=== PATIENT | female | born 1950 | race Caucasian/White ===

== ENCOUNTER → 2017-06-01 | Outpatient (CLI) | payer BC ==
--- NOTE | 2017-06-02 11:57 | MM ---
Reason for exam: screening (asymptomatic). Last mammogram was performed 1 year and 1 month ago. History: Patient is postmenopausal. Family history of breast cancer in maternal grandmother at age 80 and breast cancer in maternal aunt at age 45. Took hormonal contraceptives for 8 years beginning at age 20. Took estrogen for 7 years beginning at age 54. Took progesterone for 7 years beginning at age 54. Physical Findings: A clinical breast exam by your physician is recommended on an annual basis and results should be correlated with mammographic findings. MG 3D Screening Mammo W/Cad Bilateral CC and MLO view(s) were taken. Prior study comparison: April 30, 2016, bilateral MG screening mammo w CAD. February 28, 2015, bilateral MG screening mammo w CAD. There are scattered fibroglandular densities. Finding: There are typically benign vascular calcifications in the right breast. There is no discrete abnormality. ASSESSMENT: Benign, BI-RAD 2 RECOMMENDATION: Routine screening mammogram of both breasts in 1 year.
== END | disposition home or self-care (01) ==
LOC: RADMAMWWP 09:47
PROVIDERS: ATTEND Obstetrics & Gynecology
DX: Z12.31 Encounter for screening mammogram for malignant neoplasm of breast (principal); Z80.3 Family history of malignant neoplasm of breast
CPT/HCPCS: 77063; G0202

== ENCOUNTER → 2018-07-05 | Outpatient (CLI) | payer MEDICARE ==
--- NOTE | 2018-07-06 09:59 | MM ---
Reason for exam: screening (asymptomatic). Last mammogram was performed 1 year and 1 month ago. History: Patient is postmenopausal. Family history of breast cancer in maternal grandmother at age 80 and breast cancer in maternal aunt at age 45. Took hormonal contraceptives for 8 years beginning at age 20. Took estrogen for 7 years beginning at age 54. Took progesterone for 7 years beginning at age 54. Physical Findings: A clinical breast exam by your physician is recommended on an annual basis and results should be correlated with mammographic findings. MG 3D Screening Mammo W/Cad Bilateral CC and MLO view(s) were taken. Prior study comparison: June 01, 2017, bilateral MG 3d screening mammo w/cad. April 30, 2016, bilateral MG screening mammo w CAD. There are scattered fibroglandular densities. Benign appearing bilateral calcifications. No suspicious abnormality. No significant changes when compared with prior studies. ASSESSMENT: Benign, BI-RAD 2 RECOMMENDATION: Routine screening mammogram of both breasts in 1 year.
== END | disposition home or self-care (01) ==
LOC: RADMAMWWP 14:23
PROVIDERS: ATTEND Internal Medicine
DX: Z12.31 Encounter for screening mammogram for malignant neoplasm of breast (principal)
CPT/HCPCS: 77063; 77067

== ENCOUNTER → 2019-09-13 | Outpatient (CLI) | payer MEDICARE ==
--- NOTE | 2019-09-15 14:37 | MM ---
Reason for exam: screening (asymptomatic). Last mammogram was performed 1 year and 2 months ago. History: Patient is postmenopausal. Family history of breast cancer in maternal grandmother at age 80 and breast cancer in maternal aunt at age 45. Took hormonal contraceptives for 8 years beginning at age 20. Took estrogen for 7 years beginning at age 54. Took progesterone for 7 years beginning at age 54. Physical Findings: A clinical breast exam by your physician is recommended on an annual basis and results should be correlated with mammographic findings. MG 3D Screening Mammo W/Cad Bilateral CC and MLO view(s) were taken. Prior study comparison: July 05, 2018, bilateral MG 3d screening mammo w/cad. June 01, 2017, bilateral MG 3d screening mammo w/cad. The breast tissue is heterogeneously dense. This may lower the sensitivity of mammography. No significant changes when compared with prior studies. ASSESSMENT: Benign, BI-RAD 2 RECOMMENDATION: Routine screening mammogram of both breasts in 1 year.
== END | disposition home or self-care (01) ==
LOC: RADMAMWWP 13:09
PROVIDERS: ATTEND Internal Medicine
DX: Z12.31 Encounter for screening mammogram for malignant neoplasm of breast (principal)
CPT/HCPCS: 77063; 77067

== ENCOUNTER → 2020-12-07 | Outpatient (CLI) | payer MEDICARE ==
--- NOTE | 2020-12-10 11:12 | MM ---
Reason for exam: screening (asymptomatic). Last mammogram was performed 1 year and 3 months ago. History: Patient is postmenopausal. Family history of breast cancer in maternal grandmother at age 80 and breast cancer in maternal aunt at age 45. Took hormonal contraceptives for 8 years beginning at age 20. Took estrogen for 7 years beginning at age 54. Took progesterone for 7 years beginning at age 54. Physical Findings: A clinical breast exam by your physician is recommended on an annual basis and results should be correlated with mammographic findings. MG 3D Screening Mammo W/Cad Bilateral CC and MLO view(s) were taken. Prior study comparison: September 13, 2019, bilateral MG 3d screening mammo w/cad. July 05, 2018, bilateral MG 3d screening mammo w/cad. There are scattered fibroglandular densities. There are benign appearing vascular calcifications bilaterally. There is no discrete abnormality. ASSESSMENT: Benign, BI-RAD 2 RECOMMENDATION: Routine screening mammogram of both breasts in 1 year.
== END | disposition home or self-care (01) ==
LOC: RADMAMWWP 10:43
PROVIDERS: ATTEND Internal Medicine
DX: Z12.31 Encounter for screening mammogram for malignant neoplasm of breast (principal); Z78.0 Asymptomatic menopausal state; Z80.3 Family history of malignant neoplasm of breast
CPT/HCPCS: 77063; 77067

== ENCOUNTER → 2021-12-18 | Outpatient (CLI) | payer MEDICARE ==
--- NOTE | 2021-12-19 08:30 | MM ---
Reason for Exam: Screening (asymptomatic). Last mammogram was performed 1 year(s) and 1 month(s) ago. Patient History: Menarche at age 13. First Full-Term at age 24. Postmenopausal. Estrogen for 7 years from age 54 until age 61. Progesterone for 7 years from age 54 until age 61. Hormonal Contraceptives for 8 years from age 20 until age 52. Maternal grandmother had breast cancer, age 80. Maternal aunt had breast cancer, age 45. Risk Values: Sue 5 year model risk: 1.7%. NCI Lifetime model risk: 5.2%. Prior Study Comparison: 07/05/2018 Bilateral Screening Mammogram, [facility]. 09/13/2019 Bilateral Screening Mammogram, [facility]. 12/07/2020 Bilateral Screening Mammogram, [facility]. Tissue Density: The breast tissue is heterogeneously dense. This may lower the sensitivity of mammography. Findings: Analyzed By CAD. There are benign-appearing round and vascular calcifications bilaterally redemonstrated. Benign-appearing left axillary lymph nodes are again seen. There is no suspicious group of microcalcifications or new suspicious mass in either breast. Overall Assessment: Benign, BI-RAD 2 Management: Screening Mammogram of both breasts in 1 year. A clinical breast exam by your physician is recommended on an annual basis and results should be correlated with mammographic findings. Electronically signed and approved by: Ashutosh Street M.D.
== END | disposition home or self-care (01) ==
LOC: RADMAMWWP 09:26
PROVIDERS: ATTEND Internal Medicine
DX: Z12.31 Encounter for screening mammogram for malignant neoplasm of breast (principal)
CPT/HCPCS: 77063; 77067

== ENCOUNTER → 2022-05-16 | Outpatient (CLI) | payer MEDICARE ==
--- NOTE | 2022-05-19 11:53 | PE ---
EXAMINATION TYPE: PET CT fusion skull to thigh DATE OF EXAM: 05/16/2022 CLINICAL INDICATION:Female, 72 years old with history of R91.1 SOLITARY PULMONARY NODULE; TECHNIQUE: Following the intravenous administration of 10.9 mCi of F-18 FDG, whole body images are performed from the skull base to the midthigh. Images are reviewed on the computer in the coronal, a xial, and sagittal planes. Reconstructed rotating images are created on independent workstation and reviewed on the computer. A non-contrast CT is performed in conjunction with the PET scan. Glucose level 86 mg/dL COMPARISON: CT 04/09/2022 outside institution, PET/CT None, FINDINGS: Mediastinal SUV mean is 1.8. Hepatic parenchyma SUV mean is 2.5 SKULL BASE AND NECK: Left thyroid nodule with slightly increased FDG activity with max SUV 3.3. CHEST, MEDIASTINUM, AND HILAR REGION: Scattered lymph nodes with mild FDG activity including: * Right paratracheal posteriorly more superior measuring 6 mm in short axis and max SUV 3.0 * Right low paratracheal lymph node measuring 8 mm and max SUV 3.2. * Subcarinal lymph node with calcification measuring 6 mm in short axis and max SUV 2.9. * Left pulmonary hilum lymph nodes which are difficult to measure without IV contrast maximum SUV 3. 8. * Right pulmonary hilum lymph nodes which are difficult to measure without IV contrast maximum SUV 3 .9. * AP window lymph nodes which are difficult to measure given adjacent vascular structures max SUV 3. 8. Scattered pulmonary nodules throughout the lungs are again again seen. A majority of these are below threshold for PET/CT. Examples include: * Right upper lobe measuring 4 mm max SUV 0.5. * Right middle lobe measuring 5 mm Max SUV 0.8. * Right lower lobe 3 mm nodule Max SUV 0.6. * Left upper lobe nodular densities in totality measuring 8 x 7 mm Max SUV 0.8. * Left lower lobe 5 mm Max SUV 0.6. ABDOMEN AND PELVIS: No suspicious FDG activity. OSSEOUS STRUCTURES: No suspicious FDG activity. OTHER CT: Atherosclerosis of the arterial vasculature including the coronary arteries. The gallbladde r surgically absent. IMPRESSION: 1. Scattered subcentimeter pulmonary nodules with minimal FDG activity which are technically below t he threshold sensitivity for PET/CT. These findings with mild FDG activity within multiple lymph node s in the mediastinum suggest an infectious/inflammatory process. Attention on short-term follow-up im aging. Comparisons from before 04/09/2022 at outside institutions may be of benefit. 2. Mild FDG activity within the left thyroid gland correlate with thyroid ultrasound and serum marke rs.
== END | disposition home or self-care (01) ==
LOC: RADPETMAIN 13:40
PROVIDERS: ATTEND Internal Medicine Critical Care Medicine
DX: R91.8 Other nonspecific abnormal finding of lung field (principal)
CPT/HCPCS: 78815; A9552

== ENCOUNTER → 2022-12-23 | Outpatient (CLI) | payer MEDICARE ==
--- NOTE | 2022-12-24 07:08 | MM ---
Reason for Exam: Screening (asymptomatic). Last screening mammogram was performed 12 month(s) ago. Patient History: Menarche at age 13. First Full-Term at age 24. Postmenopausal. Estrogen for 7 years from age 54 until age 61. Progesterone for 7 years from age 54 until age 61. Hormonal Contraceptives for 8 years from age 20 until age 52. Maternal grandmother had breast cancer, age 80. Maternal aunt had breast cancer, age 45. Risk Values: Sue 5 year model risk: 1.7%. NCI Lifetime model risk: 5.0%. Prior Study Comparison: 09/13/2019 Bilateral Screening Mammogram, [facility]. 12/07/2020 Bilateral Screening Mammogram, [facility]. 12/18/2021 Bilateral MG 3D screening mammo w/cad, [facility]. Tissue Density: The breast tissue is heterogeneously dense. This may lower the sensitivity of mammography. Findings: Analyzed By CAD. There is no suspicious group of microcalcifications or new suspicious mass in either breast. Benign vascular calcifications within both breasts. Overall Assessment: Benign, BI-RAD 2 Management: Screening Mammogram of both breasts in 1 year. A clinical breast exam by your physician is recommended on an annual basis and results should be correlated with mammographic findings. Electronically signed and approved by: Abram Greene D.O.
== END | disposition home or self-care (01) ==
LOC: RADMAMWWP 13:10
PROVIDERS: ATTEND Internal Medicine
DX: Z12.31 Encounter for screening mammogram for malignant neoplasm of breast (principal); Z78.0 Asymptomatic menopausal state; Z80.3 Family history of malignant neoplasm of breast
CPT/HCPCS: 77063; 77067

== ENCOUNTER → 2023-12-25 | Outpatient (CLI) | payer MEDICARE ==
--- NOTE | 2023-12-28 13:12 | MM ---
Reason for Exam: Screening (asymptomatic). Last screening mammogram was performed 12 month(s) ago. Patient History: Menarche at age 13. First Full-Term at age 24. Postmenopausal. Estrogen for 7 years from age 54 until age 61. Progesterone for 7 years from age 54 until age 61. Hormonal Contraceptives for 8 years from age 20 until age 52. Maternal grandmother had breast cancer, age 80. Maternal aunt had breast cancer, age 45. Risk Values: Sue 5 year model risk: 1.7%. NCI Lifetime model risk: 4.7%. Prior Study Comparison: 12/07/2020 Bilateral Screening Mammogram, [facility]. 12/18/2021 Bilateral MG 3D screening mammo w/cad, [facility]. 12/23/2022 Bilateral MG 3D screening mammo w/cad, [facility]. Tissue Density: The breasts are heterogeneously dense, which may obscure small masses. Findings: Analyzed By CAD. There is no suspicious group of microcalcifications or new suspicious mass in either breast. Overall Assessment: Benign, BI-RAD 2 Management: Screening Mammogram of both breasts in 1 year. . Patient should continue monthly self-breast exams. A clinical breast exam by your physician is recommended on an annual basis. This exam should not preclude additional follow-up of suspicious palpable abnormalities. Note on Sue scores and lifetime risk: 1. A Sue score greater than 3% is considered moderate risk. If this is the case, consider specialist referral to assess eligibility for a risk reducing agent. 2. If overall lifetime risk for the development of breast cancer is 20% or higher, the patient may qualify for future screening with alternating mammogram and breast MRI. Electronically signed and approved by: Ralph Nieves M.D. Radiologis
== END | disposition home or self-care (01) ==
LOC: RADMAMWWP 10:05
PROVIDERS: ATTEND Internal Medicine
DX: Z12.31 Encounter for screening mammogram for malignant neoplasm of breast (principal); Z80.3 Family history of malignant neoplasm of breast; Z78.0 Asymptomatic menopausal state
CPT/HCPCS: 77063; 77067

== ENCOUNTER → 2025-01-03 | Outpatient (CLI) | payer MEDICARE ==
--- NOTE | 2025-01-03 15:49 | MM ---
Reason for Exam: Screening (asymptomatic). Last screening mammogram was performed 12 month(s) ago. Patient History: Menarche at age 13. First Full-Term at age 24. Postmenopausal. Estrogen for 7 years from age 54 until age 61. Progesterone for 7 years from age 54 until age 61. Hormonal Contraceptives for 8 years from age 20 until age 52. Maternal grandmother had breast cancer, age 80. Maternal aunt had breast cancer, age 45. Risk Values: Sue 5 year model risk: 1.7%. NCI Lifetime model risk: 4.5%. Prior Study Comparison: 07/05/2018 Bilateral Screening Mammogram, [facility]. 09/13/2019 Bilateral Screening Mammogram, [facility]. 12/07/2020 Bilateral Screening Mammogram, [facility]. 12/18/2021 Bilateral MG 3D screening mammo w/cad, [facility]. 12/23/2022 Bilateral MG 3D screening mammo w/cad, [facility]. 12/25/2023 Bilateral MG 3D screening mammo w/cad, [facility]. Tissue Density: The breasts are heterogeneously dense, which may obscure small masses. Findings: Analyzed By CAD. Benign bilateral vascular calcifications. There is no suspicious group of microcalcifications or new suspicious mass in either breast. Overall Assessment: Negative, BI-RAD 1 Management: Screening Mammogram of both breasts in 1 year. Patient should continue monthly self-breast exams. A clinical breast exam by your physician is recommended on an annual basis. This exam should not preclude additional follow-up of suspicious palpable abnormalities. Note on Sue scores and lifetime risk: 1. A Sue score greater than 3% is considered moderate risk. If this is the case, consider specialist referral to assess eligibility for a risk reducing agent. 2. If overall lifetime risk for the development of breast cancer is 20% or higher, the patient may qualify for future screening with alternating mammogram and breast MRI. [facility], , 01/03/2025 3:46 PM. Electronically signed and approved by: Idalia Hook M.D. Radiologist
== END | disposition home or self-care (01) ==
LOC: RADMAMWWP 12:31
PROVIDERS: ATTEND Internal Medicine
DX: Z12.31 Encounter for screening mammogram for malignant neoplasm of breast (principal); R92.333 Mammographic heterogeneous density, bilateral breasts; Z78.0 Asymptomatic menopausal state; Z80.3 Family history of malignant neoplasm of breast; Z92.0 Personal history of contraception
CPT/HCPCS: 77063; 77067